=== PATIENT | male | born 1930 | race Caucasian/White ===

== ENCOUNTER 2016-10-30 13:24 | Observation (INO) | payer MEDICARE ==
[2016-10-30 13:25] VITALS: BMI 20.2
[2016-10-30 13:44] VITALS: TEMP 97.7
--- NOTE | 2016-10-30 14:14 | ED PDOC ---
Arrival/HPI - General Chief Complaint: Cardiac Arrest Time Seen by Provider: 10/30/16 13:26 Historian: Patient, Spouse - History of Present Illness Narrative History of Present Illness (Text): 10/30/16 14:16 Tracy Corbin is a 86 year old male who presents to the emergency department via EMS for evaluation following a questionable syncopal episode. According to , who is a poor historian, patient was " partly hanging off the bed' passed out when she checked on him after hearing a noise in the bedroom. When EMS arrived, patient was in rapid a-fib and was given Cardizem in the field. Patient does not recall what happened and only remembers waking up in the ambulance. Patient currently complaining of mild headache. states patient is mildly confused at baseline. Denies fever, chills, dizziness, chest pain, shortness of breath, nausea, vomiting, diarrhea, or any other complaints at this time. Time/Duration: 1-3 hours Symptom Onset: Sudden Symptom Course: Improving Severity Level: Mild Activities at Onset: Light Context: Home Past Medical History - Provider Review Nursing Documentation Reviewed: Yes - Infectious Disease Hx of Infectious Diseases: None - Cardiac Hx Cardiac Disorders: Yes Hx Atrial Fibrillation: Yes - Pulmonary Hx Respiratory Disorders: Yes Other/Comment: SMOKED CIGARETTES A TEENAGER - Neurological Hx Neurological Disorder: Yes Hx Dizziness: Yes Hx Seizures: Yes (LAST SZ 30 YRS AGO) - HEENT Hx HEENT Disorder: No (WEARS RX GLASSES) - Renal Hx Renal Disorder: No - Endocrine/Metabolic Hx Endocrine Disorders: No - Hematological/Oncological Hx Blood Disorders: Yes Other/Comment: Low Platelet - Integumentary Hx Dermatological Disorder: No - Musculoskeletal/Rheumatological Hx Musculoskeletal Disorders: Yes Hx Falls: Yes Hx Fractures: Yes (HAIRLINE FX PELVIS) Hx Unsteady Gait: Yes (CANE) - Gastrointestinal Hx Gastrointestinal Disorders: No - Genitourinary/Gynecological Hx Genitourinary Disorders: Yes Hx Prostate Problems: Yes (BPH,URGENCY) - Psychiatric Hx Psychophysiologic Disorder: No Hx Anxiety: No Hx Bipolar Disorder: No Hx Depression: No Hx Emotional Abuse: No Hx Hallucinations: No Hx Panic Disorder: No Hx Post Traumatic Stress Disorder: No Hx Psychosis: No Hx Physical Abuse: No Hx Schizophrenia: No Hx Sexual Abuse: No Hx Substance Use: No Other/Comment: SOCIALLY DRINKS WINE,H/O OF SMOKING CIGARETTES - Anesthesia Hx Anesthesia: Yes Hx Anesthesia Reactions: No Hx Malignant Hyperthermia: No - Suicidal Assessment Feels Threatened In Home Enviroment: No Family/Social History - Physician Review Nursing Documentation Reviewed: Yes Family/Social History: No Known Family HX Smoking Status: Former Smoker Hx Alcohol Use: Yes (WINE SOCIALLY) Hx Substance Use: No Allergies/Home Meds Allergies/Adverse Reactions: Allergies levofloxacin Allergy (Verified 11/14/15 18:30) DIZZINESS Home Medications: Home Meds Medication Instructions Recorded Confirmed Aspirin [Aspir 81] 81 mg PO DAILY 03/04/13 11/14/15 Finasteride [Proscar] 5 mg PO DAILY 03/04/13 11/14/15 Folic Acid 1 mg PO DAILY 03/04/13 11/14/15 Mometasone Furoate [Nasonex] 0.05 mg NS HS 03/04/13 11/14/15 Multivitamin [One Daily 1 tab PO DAILY 03/04/13 11/14/15 Multivitamin] Cyanocobalamin (Vitamin B-12) 500 mcg PO DAILY 11/14/15 11/14/15 Dabigatran [Pradaxa] 75 mg PO BID 11/14/15 11/14/15 Metoprolol Tartrate 25 mg PO DAILY 11/14/15 11/14/15 Phenytoin Sodium Extended 100 mg PO BID 11/14/15 11/14/15 Tamsulosin [Flomax] 0.4 mg PO DAILY 11/14/15 11/14/15 levETIRAcetam [Keppra] 100 mg PO BID 11/14/15 11/14/15 Review of Systems - Physician Review All systems were reviewed & negative as marked: Yes - Review of Systems Constitutional: Normal. absent: Fatigue, Fevers Respiratory: absent: SOB, Cough Cardiovascular: Syncope (questionable ) Gastrointestinal: absent: Abdominal Pain, Diarrhea, Nausea, Vomiting Genitourinary Male: Normal Neurological: Headache. absent: Dizziness, Focal Weakness Psychiatric: Normal Physical Exam Vital Signs Reviewed: Yes Vital Signs Temp Pulse Resp BP Pulse Ox 10/30/16 13:30 97.7 F 74 18 139/67 95 Temperature: Afebrile Blood Pressure: Normal Pulse: Regular Respiratory Rate: Normal Appearance: Positive for: Well-Appearing, Non-Toxic, Comfortable Pain Distress: None Mental Status: Positive for: other (Alert and [place] X2. not oriented to time. ) - Systems Exam Head: Present: Atraumatic, Normocephalic Pupils: Present: PERRL Conjunctiva: Present: Normal Respiratory/Chest: Present: Clear to Auscultation, Good Air Exchange. No: Respiratory Distress, Accessory Muscle Use Cardiovascular: Present: Regular Rate and Rhythm, Normal S1, S2. No: Murmurs Abdomen: Present: Normal Bowel Sounds. No: Tenderness, Distention, Peritoneal Signs, Rebound, Guarding Upper Extremity: Present: Normal Inspection. No: Cyanosis, Edema Lower Extremity: Present: Normal Inspection. No: Edema Neurological: Present: GCS=15, CN II-XII Intact, Speech Normal Skin: Present: Warm, Dry, Normal Color. No: Rashes Psychiatric: Present: Alert Medical Decision Making ED Course and Treatment: 10/30/16 14:25 Impression: A 86 year old male who presents to the ed for possible syncopal episode. pt was in rapid afib when EMS arrived, Cardizem administered in the field. rate controled in er. Plan: -- CT Head -- EKG -- Labs, cardiac enzymes -- Chest X-ray -- Urinalysis -- Reassess and disposition Progress Notes: 10/30/16 14:27 EKG interpreted by me: A-fib @ [address] elevations. 10/30/16 17:03 h/o of afib. pt massiel any complaints. neuro intact, abd soft. w/u neg in er. case discussed with dr durand covering for dr vega. accepted to [facility] for syncope afib. pt on pradaxa baseline. 10/30/16 17:[address] durand bedside. accepted - Lab Interpretations Lab Results: 10/30/16 14:16 10/30/16 14:16 Lab Results 10/30/16 14:16: WBC 4.8 D, RBC 4.09, Hgb 14.1, Hct 39.7 L, MCV 97.1, MCH 34.5, MCHC 35.5, RDW 12.8, Plt Count 138, MPV 10.7, Gran % 69.8 H, Lymph % (Auto) 17.2 L, [place] % (Auto) 8.2 H, Eos % (Auto) 4.6, Baso % (Auto) 0.2, Gran # 3.32, Lymph # 0.8 L, [place] # 0.4, Eos # 0.2, Baso # 0.01, PT 12.7 H, INR 1.18 H, APTT 31.4 H, Sodium 140, Potassium 4.3, Chloride 99, Carbon Dioxide 30, Anion Gap 15 , BUN 16, Creatinine 1.0, Est GFR ( Amer) > 60, Est GFR (Non-Af Amer) > 60, Random Glucose 111 H, Calcium 9.3, Magnesium 2.2, Total Bilirubin 1.3, AST 44, ALT 19, Alkaline Phosphatase 47, Lactate Dehydrogenase 625, Total Creatine Kinase 113, Troponin I < 0.01 D, Total Protein 8.6 H, Albumin 4.3, Globulin 4.3 , Albumin/Globulin Ratio 1.0 L, Urine Color Yellow, Urine Appearance Clear, Urine pH 7.0, Ur Specific [place] 1.020, Urine Protein 100 H, Urine Glucose (UA ) Negative, Urine Ketones Negative, Urine Blood Small H, Urine Nitrate Negative , Urine Bilirubin Negative, Urine Urobilinogen 0.2, Ur Leukocyte Esterase Negative, Urine RBC 0 - 2, Urine WBC Negative, Ur Epithelial Cells 0 - 2, Urine Bacteria Neg - RAD Interpretation Radiology Orders: 10/30/16 13:55 CHEST PORTABLE [RAD] Stat 10/30/16 13:56 HEAD W/O CONTRAST [CT] Stat - Scribe Statement The provider has reviewed the documentation as recorded by the Nima Finney Provider Attestation: All medical record entries made by the Nima were at my direction and personally dictated by me. I have reviewed the chart and agree that the record accurately reflects my personal performance of the history, physical exam, medical decision making, and the department course for this patient. I have also personally directed, reviewed, and agree with the discharge instructions and disposition. Disposition/Present on Arrival - Present on Arrival Any Indicators Present on Arrival: No History of DVT/PE: No History of Uncontrolled Diabetes: No Urinary Catheter: No History of Decub. Ulcer: No History Surgical Site Infection Following: None - Disposition Have Diagnosis and Disposition been Completed?: Yes Diagnosis: Afib, Syncope Disposition: HOSPITALIZED Disposition Time: 17:37 Patient Problems: Current Active Problems Problem Status Diagnosed Afib Acute Syncope Acute Condition: FAIR
[2016-10-30 14:17] LABS: ADD MANUAL DIFF? NO
[2016-10-30 14:22] LABS: BASO # 0.01 K/mm3 (0.0-2.0); BASO % 0.2 % (0.0-3.0); EOS # 0.2 (0.0-0.7); EOS % 4.6 % (1.5-5.0); GRAN # 3.32 (1.4-6.5); GRAN % 69.8 % (50.0-68.0); HEMATOCRIT 39.7 % (42.0-52.0); LYMPH # 0.8 (1.2-3.4); LYMPH % 17.2 % (22.0-35.0); MEAN CELL VOLUME 97.1 fL (80.0-105.0); MEAN CORPUSCULAR HEMOGLOBIN 34.5 pg (25.0-35.0); MEAN CORPUSCULAR HGB CONC 35.5 g/dl (31.0-37.0); MEAN PLATELET VOLUME 10.7 fl (7.0-11.0); MONO # 0.4 (0.1-0.6); MONO % 8.2 % (1.0-6.0); PLATELET COUNT 138 10^3/uL (120.0-450.0); RED CELL DISTRIBUTION WIDTH 12.8 % (11.5-14.5); WHITE BLOOD COUNT 4.8 10^3/ul (4.5-11.0)
[2016-10-30 14:25] LABS: URINE BILIRUBIN NEGATIVE (NEGATIVE); URINE BLOOD SMALL (NEGATIVE); URINE GLUCOSE (UA) NEGATIVE (NEGATIVE); URINE KETONE NEGATIVE (NEGATIVE); URINE LEUKOCYTE ESTERASE NEGATIVE Leu/uL (NEGATIVE); URINE PROTEIN 100 mg/dL (<30 mg/dL); URINE UROBILINOGEN 0.2 E.U./dL (<1 E.U./dL)
[2016-10-30 14:28] LABS: URINE APPEARANCE CLEAR (CLEAR); URINE COLOR YELLOW (YELLOW)
[2016-10-30 14:31] LABS: ALKALINE PHOSPHATASE 47 U/L (38-133); ALT/SGPT 19 U/L (7-56); AST/SGOT 44 U/L (15-59); BILIRUBIN,TOTAL 1.3 mg/dL (0.2-1.3); BLOOD UREA NITROGEN 16 mg/dL (7-21); CALCIUM 9.3 mg/dL (8.4-10.5); CARBON DIOXIDE 30 mmol/L (21-33); CHLORIDE 99 mmol/L (98-107); GFR AFRICAN-AMERICAN > 60; GLUCOSE,RANDOM 111 mg/dL (70-110); MAGNESIUM 2.2 mg/dL (1.7-2.2); POTASSIUM 4.3 mmol/L (3.6-5.0); SODIUM 140 mmol/L (132-148); TOTAL PROTEIN 8.6 g/dL (5.8-8.3)
[2016-10-30 14:34] LABS: INR 1.18 (0.93-1.08); PARTIAL THROMBOPLASTIN TIME 31.4 Seconds (23.7-30.8)
[2016-10-30 14:43] LABS: TROPONIN I < 0.01 ng/mL
[2016-10-30 14:54] LABS: URINE BACTERIA NEG (NEG); URINE EPITHELIAL CELLS 0 - 2 /hpf (0-5); URINE RBC 0 - 2 /hpf (0-2); URINE WBC NEGATIVE /hpf (0-6)
--- NOTE | 2016-10-30 16:24 | RAD ---
HISTORY: weakness COMPARISON: No prior. FINDINGS: LUNGS: No active pulmonary disease. PLEURA: No significant pleural effusion identified, no pneumothorax apparent. CARDIOVASCULAR: Normal. OSSEOUS STRUCTURES: No significant abnormalities. VISUALIZED UPPER ABDOMEN: Normal. OTHER FINDINGS: None. IMPRESSION: No active disease.
--- NOTE | 2016-10-30 16:51 | CT ---
PROCEDURE: CT HEAD WITHOUT CONTRAST. HISTORY: porter, on pradaxa COMPARISON: None available. TECHNIQUE: Axial computed tomography images were obtained through the head/brain without intravenous contrast. Radiation dose: Total exam DLP = mGy-cm. FINDINGS: HEMORRHAGE: No intracranial hemorrhage. BRAIN: No mass effect or edema. Chronic periventricular white matter ischemic disease. VENTRICLES: Unremarkable. No hydrocephalus. CALVARIUM: Unremarkable. PARANASAL SINUSES: Complete opacification of the right maxillary sinus. MASTOID AIR CELLS: Unremarkable as visualized. No inflammatory changes. OTHER FINDINGS: None. IMPRESSION: No acute hemorrhage.
[2016-10-30] MEDS ORDERED: levETIRAcetam 500 mg/5ml UD cups PO SCH (20:30)
--- NOTE | 2016-10-31 00:19 | HP ---
HISTORY OF PRESENT ILLNESS: The patient is an 86-year-old male. He was brought to the ED with ambulance. He had a syncopal episode. found him lying on the bed unresponsive. In the ED, he was found to be in rapid AFib. He was given Cardizem in the field. He does not remember anything about the episode. He has a history of atrial fibrillation. He is on anticoagulation with Pradaxa 75 mg p.o. b.i.d. He also has history of thrombocytopenia. Platelet count has been stable recently. He has a history of enlarged prostate. Condition is stable now. He also has history of seizures. No seizure for past 30 years. Currently, heart rate is under control. Denies any chest pain. No shortness of breath. PAST MEDICAL HISTORY: Atrial fibrillation. History of seizure disorder, syncope, thrombocytopenia, BPH, fractured pelvis. PAST SURGICAL HISTORY: None. FAMILY HISTORY: No positive family history in mother and father. PERSONAL HISTORY: Former smoker. Occasionally drinks wine. SOCIAL HISTORY: He lives at home. ALLERGIES: LEVOFLOXACIN CAUSES DIZZINESS. HOME MEDICATIONS: Dilantin 100 mg b.i.d., Pradaxa 75 mg p.o. b.i.d., metoprolol 25 mg daily, folic acid 1 mg daily, aspirin 81 mg daily, Proscar 5 mg daily, Flomax 0.4 mg daily, Keppra 500 mg p.o. b.i.d. REVIEW OF SYSTEMS: As per HPI. The rest of 12-point review of systems reviewed and negative. PHYSICAL EXAMINATION: GENERAL: Comfortable in bed, in no acute distress. VITAL SIGNS: Heart rate is 74 per minute, temperature 97.7, blood pressure 139/ 67, pulse ox 95% room air. HEENT: Normal. NECK: No lymphadenopathy. CARDIOVASCULAR: S1, S2, irregularly irregular. No murmur. No gallop. CHEST: Air entry present, equal bilateral. No added sounds. ABDOMEN: Soft, nontender. No hepatosplenomegaly. EXTREMITIES: No edema. CENTRAL NERVOUS SYSTEM: Alert, oriented x 3. No focal sensorimotor deficit. SKIN: Intact. No petechia. No rash. LABORATORY DATA: White count 4.8, hemoglobin 14.1, hematocrit 39.7, platelet count 178. Sodium 140, potassium 4.3, BUN 16, creatinine 1, glucose 111. IMAGING: CAT scan of the head without contrast: No acute changes. ASSESSMENT: 1. Syncope. 2. Rapid atrial fibrillation. 3. Coagulopathy on anticoagulation with Pradaxa. 4. History of thrombocytopenia. PLAN: He will be admitted to tele monitoring. Cardiac enzymes are within normal limits. We will continue Pradaxa 75 mg daily. Cardiology consultation with Dr. Negro requested. His veterinary bacteriologist is Dr. Welch in [place]. He wants to change veterinary bacteriologist in [place]. We will continue aspirin 81 mg daily. History of seizure disorder. Continue Keppra 500 mg p.o. b.i.d. and Dilantin 100 mg p.o. b.i.d., no recent seizure. Last seizure was 30 years ago. We will continue beta blockers 25 mg daily. Benign prostatic hypertrophy. Flomax 0.4 mg daily. We will continue to monitor blood counts. Platelet count is 138 now. Hemoglobin and hematocrit stable. Renal: BUN, creatinine normal. Electrolytes normal. Discussed with the patient. Discussed with the at bedside. Discussed with the staff nurse. Marilynn Montiel MD cc: [id number] TT: 10/31/2016 00:18:44 raul MARISCAL
[2016-10-31 07:23] VITALS: RESP 16
--- NOTE | 2016-10-31 09:17 | CON ---
DATE: 10/31/2016 INDICATIONS: Syncope, rapid atrial fibrillation. HISTORY OF PRESENT ILLNESS: This is an 86-year-old man admitted yesterday through the Emergency Room after he was found at home with altered mental status , unresponsive, possible syncopal event. He was found in his bed by his who heard a noise. Apparently EMS found atrial fibrillation with rapid ventricular response on their arrival, he was given IV Cardizem in the field. He was brought to the Emergency Room. Today, he is awake, alert, lying in bed with afib with a moderate ventricular response. He has no complaints at this time. He is a poor historian. He does not remember what happened. There was no chest pain or shortness of breath. He does not recall palpitations, orthopnea, PND, edema, fever, chills, cough, sputum production, hemoptysis, abdominal pain, nausea, vomiting, diarrhea, constipation or melena. PAST MEDICAL HISTORY: Notable for chronic afib. He is on Pradaxa. He has had an admission for pneumonia, CHF. There is a history of hypertension, seizure disorder, BPH, coronary artery disease with mild coronary artery disease found on cardiac catheterization in 2012. He has chronic thrombocytopenia. There is no history of rheumatic fever, myocardial infarction, angina, diabetes, stroke, TIA. MEDICATIONS: At the time of admission include vitamin B12, metoprolol, Dilantin , aspirin, Flomax, folic acid, Keppra, Nasonex, multivitamin, Pradaxa, Proscar, Tessalon Perles, Zithromax. ALLERGIES: HE NOTES AN ALLERGY TO LEVOFLOXACIN. SOCIAL HISTORY: He is a former remote smoker. He does not drink alcohol. He lives at home with his . He is ambulatory. FAMILY HISTORY: Noncontributory. REVIEW OF SYSTEMS: A 10-point review of systems is limited, but otherwise unremarkable except as noted above. PHYSICAL EXAMINATION: GENERAL: He is an elderly male lying flat in bed in the Emergency Room in no acute distress. VITAL SIGNS: Notable for afib at 67 beats per minute. Blood pressure 122/53, respirations 16-20, O2 sat 95-98% on room air. HEENT: Reveals no neck vein distention, thyromegaly or carotid bruits. Mucous membranes are moist. Conjunctivae are pink. NECK: Supple. LUNGS: Lung alonso, a few scattered rhonchi. HEART: Revealed an irregular rhythm, normal first and second heart sounds. Soft systolic murmur along the left sternal border. ABDOMEN: Soft, bowel sounds present. No mass, organomegaly, tenderness, rebound, guarding, CVA tenderness or palpable abdominal aortic aneurysm. EXTREMITIES: Revealed no cyanosis, clubbing, or edema. NEUROLOGIC: He was awake, alert and oriented. SKIN: Warm and dry. No rash or cellulitis. PSYCHIATRIC: Normal as to mood and affect. LABORATORY AND IMAGING: EKG demonstrates atrial fibrillation with nonspecific ST wave changes, more prominent than on a prior EKG. CT scan of the head revealed no acute bleed a portable chest x-ray revealed no active disease. White count of 4800, hemoglobin 14.1, hematocrit 39.7, platelet count 138,000. PT, INR, PTT slightly elevated. Electrolytes, BUN, creatinine, blood sugar, calcium, magnesium, LFTs. CK and troponin are all normal. Urinalysis is as noted. IMPRESSION: The patient is an 86-year-old man with known chronic atrial fibrillation, seizure disorder, hypertension, admitted with altered mental status episode, possibly syncope with atrial fibrillation, rapid ventricular response at the site, but with a moderate response on telemetry at the moment. PLAN: At this time, I will review his old records. He is being admitted to telemetry. We will get another set of cardiac enzymes. I will check his TSH level. I will continue metoprolol and Pradaxa. He is getting Dilantin, aspirin, Flomax, Keppra and Proscar. He should have a neurologic evaluation. I will check for postural hypotension. He can be out of bed to a chair. I will follow along with you. I will make additional recommendations based on his clinical course. Overall, a conservative course of cardiac care is anticipated. Mikey Negro MD cc: [id number] TT: 10/31/2016 09:17:16 Confirmation # [id number] Dictation # [id number] keon MARISCAL
[2016-10-31 09:33] VITALS: O2SAT 97
[2016-10-31 11:50] VITALS: BP 139/66; PULSE 69
--- NOTE | 2016-10-31 12:02 | CARD ---
APPROVED REPORT EKG Measurement Heart [id number] <Conclusion> Atrial fibrillation Nonspecific ST and T wave abnormality, probably digitalis effect Prolonged QT Abnormal ECG
--- NOTE | 2016-10-31 15:48 | PN ---
DATE: 10/31/2016 The patient is an 86-year-old, seen and examined. by the bedside, who found him hanging by the bedside. He was short of breath and complained of feeling weak. PHYSICAL EXAMINATION: VITAL SIGNS: He is afebrile, pulse 89, respirations 16, blood pressure 139/66. LUNGS: Bilateral fair airflow, no rhonchi or crackle. HEART: S1, S2 audible. No murmur. ABDOMEN: Soft, nontender, no rebound, no guarding. NEUROLOGIC: The patient is awake and alert, communicative. LABORATORY EXAMINATION: There is no new lab available today. He had CT scan of the head done that is unremarkable. X-ray of chest, no active . ASSESSMENT AND PLAN: 1. Chronic atrial fibrillation, on Pradaxa. 2. History of seizure disorder. 3. Hypertension. 4. Questionable altered mental status. So, I will place him on observation. Physical therapy evaluation is requested. Will follow up echoc ardiogram, order for CBC and CMP in a.m. I will also get lipid profile. Rita Garrido MD cc: [id number] TT: 10/31/2016 13:27:23 Confirmation # [id number] Dictation # [id number] en
--- NOTE | 2016-10-31 21:08 | US ---
PROCEDURE: Bilateral carotid artery duplex ultrasound HISTORY: Carotid stenosis syncope. PHYSICIAN(S): Hubert Stoddard MD. TECHNIQUE: Duplex sonography and color-flow Doppler were used to evaluate the carotid bifurcations and limited segments of the vertebral arteries bilaterally. FINDINGS: There is mild smooth heterogeneous plaque noted at the carotid bifurcations bilaterally. The peak systolic velocity in the proximal right internal carotid artery is 47 cm/sec. This corresponds to a 20 to 39% proximal right ICA stenosis. Normal systolic velocities are noted in the proximal right external carotid artery. There is antegrade flow in the right vertebral artery. The peak systolic velocity in the proximal left internal carotid artery is 61 cm/sec. This corresponds to a 20 to 39% proximal left ICA stenosis. Normal systolic velocities are noted in the proximal left external carotid artery. There is antegrade flow in the left vertebral artery. IMPRESSION: 1. Bilateral 20-39% proximal ICA stenoses. 2. Antegrade flow in both vertebral arteries.
== END 2016-10-31 22:24 | disposition home or self-care (01) ==
LOC: ED 13:24 → INTOOBSV 17:02 → ERH 17:02 → OBSVTOIN 17:02 → ERH 10-31 15:59 → 2RNO 10-31 17:35
PROVIDERS: ADMIT Internal Medicine Nephrology; ATTEND Internal Medicine
DX: I48.2 Chronic atrial fibrillation (principal); N40.1 Benign prostatic hyperplasia with lower urinary tract symptoms; R39.15 Urgency of urination; D68.9 Coagulation defect, unspecified; G40.909 Epilepsy, unspecified, not intractable, without status epilepticus; I11.0 Hypertensive heart disease with heart failure; I50.9 Heart failure, unspecified; I25.10 Atherosclerotic heart disease of native coronary artery without angina pectoris; D69.6 Thrombocytopenia, unspecified; Z79.01 Long term (current) use of anticoagulants; Z87.891 Personal history of nicotine dependence; Z79.899 Other long term (current) drug therapy; Z79.82 Long term (current) use of aspirin; Z87.81 Personal history of (healed) traumatic fracture; Z88.3 Allergy status to other anti-infective agents; R41.82 Altered mental status, unspecified; R55 Syncope and collapse
CPT/HCPCS: 70450; 71010; 80053; 81001; 82550; 83615; 83735; 84484; 85025; 85610; 85730; 93005; 93880; 97116; 97162; 97530; G0378; G8978; G8979